=== PATIENT | female | born 1965 | race Caucasian/White ===

== ENCOUNTER → 2016-08-12 | Outpatient (REF) ==
[~2016-08-12] MED LIST: FLEXERIL 1010 MG/TAB PO
== END ==
LOC: WSOH 09:58
DX: Z01.89 Encounter for other specified special examinations (principal)

== ENCOUNTER → 2016-08-27 | Outpatient (CLI) | payer BC | LOC: MC.RAD 14:00 | DX: Z12.31 Encounter for screening mammogram for malignant neoplasm of breast (principal) ==

== ENCOUNTER → 2017-12-13 | Outpatient (CLI) | payer BC | LOC: MC.RAD 09:00 | DX: Z12.31 Encounter for screening mammogram for malignant neoplasm of breast (principal) ==

== ENCOUNTER → 2019-03-29 | Outpatient (CLI) | payer BC | LOC: MC.RAD 14:41 | DX: Z12.31 Encounter for screening mammogram for malignant neoplasm of breast (principal) ==

== ENCOUNTER → 2020-03-31 | Outpatient (CLI) | payer BC | LOC: MC.RAD 07:15 | DX: Z12.31 Encounter for screening mammogram for malignant neoplasm of breast (principal) ==

== ENCOUNTER → 2021-07-31 | Outpatient (CLI) | payer BC | LOC: MC.RAD 07-02 10:00 | DX: Z12.31 Encounter for screening mammogram for malignant neoplasm of breast (principal) ==

== ENCOUNTER 2021-12-25 12:03 | Emergency (ER) | payer BC ==
[~2021-12-25] VITALS: Ht 172.7 cm; Wt 86.4 kg
[2021-12-25 12:26] VITALS: TEMP 97.7
[2021-12-25 12:45] LABS: BASO % 0.3 % (0.0-2.0); EOS % 0.3 % (0.0-4.0); GRAN # 9.2 K/mm3 (1.4-6.5); GRAN % 77.5 % (42.2-75.2); HEMATOCRIT 43.6 % (37.0-47.0); HEMOGLOBIN 15.2 g/dl (12.5-16.0); LYMPH # 1.5 K/mm3 (1.2-3.4); LYMPH % 12.6 % (20.0-51.0); MEAN CELL VOLUME 83 fl (80.0-100.0); MEAN CORPUSCULAR HEMOGLOBIN 29 pg (27-31); MEAN CORPUSCULAR HGB CONC 35 g/dl (33.0-37.0); MEAN PLATELET VOLUME 9.3 fl (7.4-10.4); MONO # 1.1 K/mm3 (0.1-0.6); PLATELET COUNT 307 K/mm3 (130-400); RED BLOOD COUNT 5.23 M/mm3 (4.10-5.30); REDCELL DISTRIBUTION WIDTH-CV 12.5 % (11.5-14.5)
[2021-12-25] MEDS ORDERED: NORVASC 5MG5 MG/TAB PO (12:45)
[2021-12-25 13:02] LABS: BILIRUBIN,TOTAL 0.9 mg/dL (0.2-1.2); C-REACTIVE PROTEIN 19.88 mg/dL (0.00-0.50); CALCIUM 10.1 mg/dL (8.4-10.2); CREATININE, serum 1.2 mg/dL (0.57-1.11); POTASSIUM 3.5 mmol/L (3.5-4.5); TOTAL PROTEIN 7.7 gm/dL (6.2-8.1)
[2021-12-25 14:03] LABS: COLLECTION METHOD CLEAN CATCH
[2021-12-25] MEDS ORDERED: AMOXICILLIN 8751 TAB PO (14:26)
[2021-12-25 14:28] LABS: URINE APPEARANCE Clear (CLEAR/HAZY); URINE BLOOD Negative (NEGATIVE); URINE COLOR Yellow (YELLOW); URINE GLUCOSE Negative (NEGATIVE); URINE KETONE Negative (NEGATIVE); URINE NITRATE Negative (NEGATIVE); URINE PROTEIN(semi-quant) Negative (NEGATIVE); URINE UROBILINOGEN 0.2 E.U/dL (0.2-1.0)
[2021-12-25] MEDS ORDERED: NORCO 325 MG-51 TAB PO (14:28)
[2021-12-25 14:43] LABS: SQUAMOUS EPITHELIAL 0-2 /hpf (0-10); URINE BACTERIA None Seen /hpf (NONE SEEN); URINE RBC 0-2 /hpf (0-2)
[2021-12-25 14:47] VITALS: BP 141/93; PULSE 78
[2021-12-25] MEDS ORDERED: LEVAQUIN 750MG750 M1 PO (14:55)
[2021-12-25] MEDS ORDERED: FLAGYL500 MG PO (14:55)
== END 2021-12-25 15:00 | disposition home or self-care (01) ==
LOC: COL.ER 12:03
PROVIDERS: Physician Assistant
DX: K57.32 Diverticulitis of large intestine without perforation or abscess without bleeding (principal); R79.82 Elevated C-reactive protein (CRP); Z88.0 Allergy status to penicillin; Z88.1 Allergy status to other antibiotic agents; Z91.040 Latex allergy status; Z28.310 Unvaccinated for COVID-19
CPT/HCPCS: J1885; J7030; Q9967

== ENCOUNTER 2021-12-27 17:19 | Emergency (ER) | payer BC ==
[~2021-12-27] VITALS: Ht 172.7 cm; Wt 84.1 kg
[~2021-12-27 17:19] MED LIST changes: +AMOXICILLIN 8751 TAB PO; +FLAGYL500 MG PO; +LEVAQUIN 750MG750 M1 PO; +NORCO 325 MG-51 TAB PO; +NORVASC 5MG5 MG/TAB PO
[2021-12-27 17:26] VITALS: BP 187/94; PULSE 104; TEMP 98.2
== END 2021-12-27 18:17 | disposition home or self-care (01) ==
LOC: COL.ER 17:19
DX: M25.572 Pain in left ankle and joints of left foot (principal); M25.512 Pain in left shoulder; Z91.040 Latex allergy status; Z28.310 Unvaccinated for COVID-19

== ENCOUNTER → 2022-08-06 | Outpatient (CLI) | payer BC | LOC: MC.RAD 11:30 | DX: Z12.31 Encounter for screening mammogram for malignant neoplasm of breast (principal); R92.8 Other abnormal and inconclusive findings on diagnostic imaging of breast ==

== ENCOUNTER → 2022-08-13 | Outpatient (CLI) | payer BC | LOC: MC.RAD 08:57 | DX: R92.2 Inconclusive mammogram (principal) ==

== ENCOUNTER → 2023-08-11 | Outpatient (CLI) | payer BC | LOC: MC.RAD 15:57 | DX: Z12.31 Encounter for screening mammogram for malignant neoplasm of breast (principal) ==